=== PATIENT | female | born 1990 | race Caucasian/White ===

== ENCOUNTER 2018-02-16 00:48 | Emergency (ER) | payer OTHER, SELFPAY ==
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
--- NOTE | 2018-02-16 08:57 | RAD ---
FIFTH DIGIT RIGHT HAND THREE VIEWS: Indication: Injury, pain. FINDINGS: No evidence of a displaced fracture. No discrete radiopaque foreign body. IMPRESSION: No acute abnormality fifth digit right hand. POS: [facility]
== END 2018-02-16 04:01 | disposition home or self-care (01) ==
LOC: SCSER 00:48
DX: S63.616A Unspecified sprain of right little finger, initial encounter (principal); E03.9 Hypothyroidism, unspecified; F41.9 Anxiety disorder, unspecified; F32.9 Major depressive disorder, single episode, unspecified; V49.9XXA Car occupant (driver) (passenger) injured in unspecified traffic accident, initial encounter
CPT/HCPCS: 29131; 70450; 72125

== ENCOUNTER 2022-07-27 19:54 | Emergency (ER) | payer OTHER, SELFPAY ==
[2022-07-27] MEDS ORDERED: Boostrix 0.5 ML (Tdap) VIAL (>/=7 yrs of age) ONE (20:17)
[2022-07-27] MEDS ORDERED: HYDROcodone/Acetaminophen 10/325 mg Tablet ONE (20:30)
== END 2022-07-27 21:16 | disposition home or self-care (01) ==
LOC: ERS 19:54
DX: S60.512A Abrasion of left hand, initial encounter (principal); S63.610A Unspecified sprain of right index finger, initial encounter; S63.614A Unspecified sprain of right ring finger, initial encounter; S63.612A Unspecified sprain of right middle finger, initial encounter; W01.0XXA Fall on same level from slipping, tripping and stumbling without subsequent striking against object, initial encounter; Z23 Encounter for immunization
CPT/HCPCS: 90471; 90715